=== PATIENT | female | born 1945 | race Hispanic/Latino ===

== ENCOUNTER 2017-12-29 07:40 | Day surgery (SDC) | payer MEDICARE ==
[2012-11-17 13:13] VITALS: BMI 30.7
[2017-12-29 08:12] VITALS: TEMP 98
[2017-12-29] MEDS ORDERED: Propofol 10 mg/ml Inj (20 ML) ONE (08:50)
[2017-12-29] MEDS ORDERED: Sodium Chloride 0.9% 1,000 ML IV SCH (09:30)
[2017-12-29 10:27] VITALS: BP 140/69; PULSE 54; RESP 16; O2SAT 99
== END 2017-12-29 11:10 | disposition home or self-care (01) ==
LOC: ENDO 07:40
PROVIDERS: ATTEND Specialist
DX: Z12.11 Encounter for screening for malignant neoplasm of colon (principal); D12.5 Benign neoplasm of sigmoid colon; K62.1 Rectal polyp; K57.30 Diverticulosis of large intestine without perforation or abscess without bleeding; K64.8 Other hemorrhoids; E03.9 Hypothyroidism, unspecified; E78.5 Hyperlipidemia, unspecified; Z98.51 Tubal ligation status